=== PATIENT | male | born 1940 | race Caucasian/White ===

== ENCOUNTER 2018-02-25 16:49 | Inpatient (IN) | payer MEDICARE ==
[~2018-02-25] VITALS: Ht 170.2 cm; Wt 77.8 kg
--- NOTE | ~2018-02-25 | PR ---
[place], [place] PROGRESS NOTE [id number] UNIT #: [id number] ROOM: 404 DOCTOR: JEANNA TAMEZ MD BIRTHDATE: [birth year] DOS: 02/28/2018 SUBJECTIVE: The patient was seen by Dr. Glass yesterday for me. The patient apparently underwent an echocardiogram basically showed an ejection fraction of 55%. The patient's left atrium is normal size ____ aortic regurgitation. Mitral valve is normal. Tricuspid valve is normal. Mild tricuspid regurgitation. The patient is hemodynamically stable. PHYSICAL EXAMINATION: VITAL SIGNS: Blood pressure is 115/90. HEENT: Unremarkable. NECK: Supple, no JVD. LUNGS: Clear. HEART: Sounds are regular, paced rhythm. EXTREMITIES: About 2+ edema. NEUROLOGIC: Appears to be stable. I's and O's still shows positive at 330. IMPRESSION: The patient was seen by Dr. Glass. History of atrial fibrillation. He is in sinus rhythm with ventricular pacing, 2+ edema of the lower extremities. Echo showed an excellent ejection fraction, probably it is related to amlodipine or diltiazem because the EF is normal. The patient has a contraindication, use anticoagulation as mentioned, but the patient is in sinus rhythm and continue the present care. JEANNA TAMEZ MD CM:PNTRANS [id number] JEANNA TAMEZ MD 02/28/18 0733 interface
--- NOTE | ~2018-02-25 | CON ---
[place], [place] REPORT OF CONSULTATION [id number] UNIT #: [id number] ROOM: 404 DOCTOR: NAYLA HENRIQUEZ MD BIRTHDATE: [birth year] DOS: 02/27/2018 HISTORY OF PRESENT ILLNESS: This is a 77-year-old -[place] man with a history of paroxysmal atrial fibrillation quite a while ago. He had what he describes as long asystole where he passed out many times and had a dual chamber pacemaker implanted. This was done in [place]. He has COPD, diabetes mellitus, and hyperlipidemia. He had GI bleeding while he was on Eliquis and this was discontinued. He has had a brain tumor, he had spinal surgery, tonsillectomy and surgery of mandible. No alcohol use or illicit drugs. Does not smoke. He had become short of breath and also was coughing. He was not expectorating any sputum. He had no fever or chills. He had no palpitations or chest pain. He has chronic swelling of the legs. When he arrived in the Emergency Department, he was found to have O2 saturation of 82%. HOME MEDICATIONS: Include furosemide 40 mg daily, lisinopril 2.5 mg daily, metoprolol succinate 25 mg daily, pravastatin 20 daily, ranitidine 150 mg b.i.d. and diltiazem ER 240 mg once a day, finasteride 5 mg daily, glimepiride 8 mg daily, Januvia 100 mg daily, spironolactone 25 mg daily and Flomax 0.4 mg daily and also NovoLog FlexPen. PHYSICAL EXAMINATION: GENERAL: This is a patient who is very pleasant, alert, oriented. He is very comfortable. His temperature is normal. There is no thyromegaly or finger clubbing. He is not cyanotic or jaundiced, but has oxygen on. VITAL SIGNS: Pulse is irregular at 80 beats per minute, blood pressure 110/63. NECK: Normal JVP. AJR is negative. There is no bruit in the neck. HEART: There is no cardiomegaly. Auscultation revealed grade 1-2/6 early peaking systolic murmur over the aortic area. EXTREMITIES: There is 2+ edema of the lower extremities. RESPIRATORY: Breath sounds are mildly diminished with rhonchi and some crackles on both sides, more so on the right side. DIAGNOSTIC STUDIES: An ECG showed normal sinus rhythm and ventricular pacing. Chest x-ray demonstrated dual chamber pacemaker with normal position of the leads and right lower middle lobe infiltrates. IMPRESSION: 1. History of atrial fibrillation. He is currently in normal sinus rhythm with ventricular pacing. 2. A 2+ edema of the lower extremities, likely due to diltiazem and I do not believe this is due to cardiac decompensation. 3. Pneumonia causing hypoxia, is being treated. He has contraindication to use of anticoagulation as mentioned above. I thank you on behalf of Dr. Woodruff for this consult. [place], [place] REPORT OF CONSULTATION NAME: WOLF BENTON UNIT #: [id number] ROOM: [facility] DOCTOR: NAYLA HENRIQUEZ MD BIRTHDATE: [birth year] NAYLA HENRIQUEZ MD CM:CONSTR:REPORT OF CONSULTATION 1759 02/28/18 0347 interface JEANNA WOODRUFF MD
--- NOTE | ~2018-02-25 | EKG ---
[place], [place] ELECTROCARDIOGRAM REPORT NAME: WOLF BENTON UNIT #: [id number] ROOM: 404 DOCTOR: PHONG DRAFT REPORT BIRTHDATE: [birth year] [facility] Test Date: 2018-02-25 Test Time: 17:20:36 Pat Name: WOLF BENTON Department: Room: 404 Gender: M Assistant Front End Manager: : 1940 Requested By: SHWETA KING Order Number: [id number] Reading MD: Jody Holguin MD Measurements Intervals [place] Rate: 74 P: -20 RI: 204 QRS: 11 QRSD: 152 T: 114 QT: 418 QTc: 464 Interpretive Statements Atrial-sensed ventricular-paced rhythm No further analysis attempted due to paced rhythm Electronically Signed On 02-26-2018 11:12:06 PDT by Jody Holguin MD CM:EKGRPT:ELECTROCARDIOGRAM REPORT 1720 1112 SHWETA KING EPIPHANY DRAFT REPORT SHWETA KING
[2018-02-25 16:56] VITALS: BP 125/65
[2018-02-25] MEDS ORDERED: DILTIAZEM ER240 M1 PO (17:16)
[2018-02-25] MEDS ORDERED: DULE1ARO1 INH (17:17)
[2018-02-25] MEDS ORDERED: GOOD NEIGHBOR P20 MG PO (17:18)
[2018-02-25] MEDS ORDERED: FINASTERIDE5 M1 PO (17:18)
[2018-02-25] MEDS ORDERED: GABAPENTIN600 MG PO (17:19)
[2018-02-25] MEDS ORDERED: FUROSEMIDE40 MG PO (17:19)
[2018-02-25] MEDS ORDERED: AMARYL4 MG PO (17:19)
[2018-02-25] MEDS ORDERED: LISINOPRIL2.5 MG PO (17:20)
[2018-02-25] MEDS ORDERED: JANUVIA100 MG PO (17:20)
[2018-02-25] MEDS ORDERED: METOPROLOL SUCC25 M2 PO (17:21)
[2018-02-25] MEDS ORDERED: NOVOLOG FL100 UNIT/1 SQ (17:22)
[2018-02-25] MEDS ORDERED: PRAVACHOL20 MG PO (17:22)
[2018-02-25] MEDS ORDERED: RANITIDINE HCL150 M1 PO (17:23)
[2018-02-25] MEDS ORDERED: ALDACTONE25 M1 PO (17:24)
[2018-02-25] MEDS ORDERED: TAMSULOSIN HCL0.4 MG PO (17:25)
[2018-02-25 17:29] LABS: BASO % 0.3 % (0.0-1.0); EOS % 0.1 % (1.0-4.0); HEMOGLOBIN 11.5 g/dl (14.0-18.0); LYMPH # 0.4 10*3/uL (1.3-4.4); LYMPH % 3.6 % (27.0-41.0); MEAN CELL VOLUME 95.7 fl (80.0-94.0); MEAN CORPUSCULAR HGB 30.6 pg (27.0-31.0); MEAN CORPUSCULAR HGB CONC 31.9 g/dl (33.0-37.0); MONO # 0.6 10*3/uL (0.1-1.0); MONO % 5.5 % (3.0-9.0); NEUT # 9.8 10*3/uL (2.3-7.9); PLATELET COUNT AUTOMATED 163 10*3/uL (130-400); RED BLOOD COUNT 3.76 10*6/uL (4.50-5.90); RED CELL DISTRI WIDTH 12.9 % (0-14.5); WHITE BLOOD COUNT 10.9 10*3/uL (4.8-10.8)
[2018-02-25 17:41] LABS: ACT PARTIAL THROMBO TIME 24.5 SECONDS (20.8-31.5); INTERNATIONAL NORM RATIO 1.1 (2.0-3.5)
[2018-02-25 17:46] LABS: ALBUMIN 3.2 gm/dl (3.1-4.5); ALKALINE PHOSPHATASE 69 U/L (45-117); BUN 19 mg/dl (7-24); CHLORIDE 104 mmol/L (98-107); CREATININE 1.26 mg/dL (0.70-1.30); LIPASE 70 U/L (73-393); POTASSIUM 4.7 mmol/L (3.5-5.1); SGOT/AST 21 IU/L (3-35); SGPT/ALT 15 U/L (12-78); SODIUM 137 mmol/L (136-145); TOTAL PROTEIN 7.2 gm/dL (6.4-8.2)
[2018-02-25 17:47] LABS: TROPONIN I 0.029 ng/ml (<0.045)
[2018-02-25 17:55] LABS: ABG BASE EXCESS -2.8 mmol/L (-2.0-2.0); ABG HCO3 20.8 mmol/l (22-26); ABG O2 SATURATION 91.8 % (95-97); ARTERIAL BLOOD GAS PH 7.403 (7.35-7.45); ARTERIAL BLOOD GAS PO2 62.5 mmHg (80-90)
[2018-02-25 20:00] VITALS: BP 132/62
[2018-02-26] VITALS: BP 121/60
[2018-02-26 06:47] LABS: HEMATOCRIT 38.1 % (42.0-52.0); HEMOGLOBIN 12.1 g/dl (14.0-18.0); MEAN CELL VOLUME 96.2 fl (80.0-94.0); MEAN CORPUSCULAR HGB 30.6 pg (27.0-31.0); MEAN CORPUSCULAR HGB CONC 31.8 g/dl (33.0-37.0); MEAN PLATELET VOLUME 10.4 fl (9.6-12.3); PLATELET COUNT AUTOMATED 156 10*3/uL (130-400); RED BLOOD COUNT 3.96 10*6/uL (4.50-5.90); RED CELL DISTRI WIDTH 12.7 % (0-14.5); WHITE BLOOD COUNT 10.8 10*3/uL (4.8-10.8)
[2018-02-26 07:12] LABS: TOTAL CELLS COUNTED 100 #CELLS
[2018-02-26 07:13] LABS: PLATELET SUFFICIENCY NORMAL (NORMAL)
[2018-02-26 07:28] LABS: CHLORIDE 103 mmol/L (98-107)
[2018-02-26 07:45] LABS: BUN 20 mg/dl (7-24); CHOLESTEROL 127 mg/dL (<200); CREATININE 1.14 mg/dL (0.70-1.30); HDL CHOLESTEROL 51 mg/dl (40-60); LDL CHOLESTEROL 65 mg/dL (9-159); PHOSPHOROUS 1.7 mg/dL (2.5-4.9); THYROID STIM HORMONE (HS) 0.225 uIU/ml (0.358-4.75); TRIGLYCERIDES 56 mg/dl (<150); VLDL CHOLESTEROL 11 mg/dL (6-40)
[2018-02-26 07:54] LABS: SODIUM 137 mmol/L (136-145)
[2018-02-26 08:00] VITALS: BP 125/65
[2018-02-26 08:03] LABS: POTASSIUM 3.7 mmol/L (3.5-5.1)
[2018-02-26 09:25] LABS: VITAMIN D, 25-HYDROXY 17.5 ng/mL (30-100)
[2018-02-26 12:00] VITALS: BP 135/68
[2018-02-26 16:00] VITALS: BP 119/50
[2018-02-26 20:00] VITALS: BP 116/54
[2018-02-27] VITALS: BP 135/53
[2018-02-27 06:53] LABS: HEMATOCRIT 36.9 % (42.0-52.0); HEMOGLOBIN 11.9 g/dl (14.0-18.0); MEAN CELL VOLUME 94.6 fl (80.0-94.0); MEAN CORPUSCULAR HGB 30.5 pg (27.0-31.0); MEAN CORPUSCULAR HGB CONC 32.2 g/dl (33.0-37.0); MEAN PLATELET VOLUME 10.5 fl (9.6-12.3); PLATELET COUNT AUTOMATED 181 10*3/uL (130-400); RED CELL DISTRI WIDTH 13.2 % (0-14.5)
[2018-02-27 07:06] LABS: CHLORIDE 105 mmol/L (98-107); CREATININE 1.15 mg/dL (0.70-1.30); PHOSPHOROUS 2.8 mg/dL (2.5-4.9); POTASSIUM 4.5 mmol/L (3.5-5.1); SODIUM 141 mmol/L (136-145)
[2018-02-27 07:11] LABS: PLATELET SUFFICIENCY NORMAL (NORMAL); TOTAL CELLS COUNTED 100 #CELLS
[2018-02-27 07:17] LABS: BUN 32 mg/dl (7-24)
[2018-02-27 08:00] VITALS: BP 115/59; BP 134/56
[2018-02-27 12:00] VITALS: BP 121/47
[2018-02-27 16:00] VITALS: BP 110/63
[2018-02-27 20:00] VITALS: BP 114/68
[2018-02-28] VITALS: BP 134/62
[2018-02-28 08:00] VITALS: BP 120/52
[2018-02-28] MEDS ORDERED: LISINOPRIL5 MG PO (11:08)
[2018-02-28] MEDS ORDERED: LEVEMIR FL100 UNIT/1 SQ (11:08)
[2018-02-28] MEDS ORDERED: ZITHROMAX500 MG PO (11:27)
[2018-02-28 12:00] VITALS: BP 114/90
== END 2018-02-28 11:20 | disposition home or self-care (01) | DRG 177 ==
LOC: ED 16:49 → EDHOLD 18:08 → 4E 18:08
PROVIDERS: Internal Medicine; Nurse Practitioner Family; Student in an Organized Health Care Education/Training Program
DX: J69.0 Pneumonitis due to inhalation of food and vomit (principal); J96.01 Acute respiratory failure with hypoxia; E87.2 Acidosis; D68.59 Other primary thrombophilia; E11.65 Type 2 diabetes mellitus with hyperglycemia; I08.2 Rheumatic disorders of both aortic and tricuspid valves; I48.0 Paroxysmal atrial fibrillation; I50.9 Heart failure, unspecified; D53.9 Nutritional anemia, unspecified; R79.89 Other specified abnormal findings of blood chemistry; E66.3 Overweight; N40.0 Benign prostatic hyperplasia without lower urinary tract symptoms; E78.5 Hyperlipidemia, unspecified; J44.9 Chronic obstructive pulmonary disease, unspecified; Z79.4 Long term (current) use of insulin; Z79.899 Other long term (current) drug therapy; Z87.891 Personal history of nicotine dependence; Z82.49 Family history of ischemic heart disease and other diseases of the circulatory system; Z95.0 Presence of cardiac pacemaker; Z68.28 Body mass index [BMI] 28.0-28.9, adult

== ENCOUNTER 2018-08-23 12:03 | Emergency (ER) | payer MEDICARE ==
[~2018-08-23] VITALS: Ht 170.1 cm; Wt 79.8 kg
[~2018-08-23 12:03] MED LIST: ALDACTONE25 M1 PO; AMARYL4 MG PO; DILTIAZEM ER240 M1 PO; DULE1ARO1 INH; FINASTERIDE5 M1 PO; FUROSEMIDE40 MG PO; GABAPENTIN600 MG PO; GOOD NEIGHBOR P20 MG PO; JANUVIA100 MG PO; LEVEMIR FL100 UNIT/1 SQ; LISINOPRIL2.5 MG PO; LISINOPRIL5 MG PO; METOPROLOL SUCC25 M2 PO; NOVOLOG FL100 UNIT/1 SQ; PRAVACHOL20 MG PO; RANITIDINE HCL150 M1 PO; TAMSULOSIN HCL0.4 MG PO; ZITHROMAX500 MG PO
[2018-10-13] MEDS ORDERED: GABAPENTIN800 MG PO (18:33)
[2018-10-13] MEDS ORDERED: MELOXICAM15 MG PO (18:35)
[2018-10-13] MEDS ORDERED: HYDROCODONE-AC1 EACH PO (21:52)
[2018-10-15] MEDS ORDERED: LIPITOR10 MG PO (10:44)
[2018-10-15] MEDS ORDERED: MUCINEX ER600 MG PO (10:44)
[2018-10-15] MEDS ORDERED: PREDNISONE10 MG PO (10:44)
== END 2018-08-23 14:24 | disposition home or self-care (01) ==
LOC: ED 12:03
DX: S93.402A Sprain of unspecified ligament of left ankle, initial encounter (principal); Z87.891 Personal history of nicotine dependence; Z79.899 Other long term (current) drug therapy; X50.1XXA Overexertion from prolonged static or awkward postures, initial encounter; Y93.89 Activity, other specified; Y92.89 Other specified places as the place of occurrence of the external cause; Y99.8 Other external cause status

== ENCOUNTER 2018-12-16 19:44 | Emergency (ER) | payer MEDICARE ==
[~2018-12-16] VITALS: Ht 170.1 cm; Wt 86.2 kg
--- NOTE | ~2018-12-16 | EKG ---
[place], [place] ELECTROCARDIOGRAM REPORT NAME: WOLF BENTON UNIT #: [id number] ROOM: DOCTOR: EPIPHANY DRAFT REPORT BIRTHDATE: [birth year] [facility] Test Date: 2018-12-16 Test Time: 20:40:59 Pat Name: WOLF BENTON Department: ER Room: Gender: Instrument Designer: : 1940 Requested By: BYRON RICO PA-C Order Number: [id number] Reading MD: Jody Holguin MD Measurements Intervals [place] Rate: 63 P: 45 NE: 220 QRS: 52 QRSD: 147 T: 107 QT: 442 QTc: 453 Interpretive Statements Ventricular-paced complexes No further analysis attempted due to paced rhythm Compared to ECG 10/13/2018 23:28:24 No significant changes Electronically Signed On 12-22-2018 9:26:07 PDT by Jody Holguin MD CM:EKGRPT:ELECTROCARDIOGRAM REPORT 38 5 BYRON RICO PA-C EPIPHANY DRAFT REPORT BYRON RICO PA-C
[~2018-12-16 19:44] MED LIST changes: +GABAPENTIN800 MG PO; +HYDROCODONE-AC1 EACH PO; +LIPITOR10 MG PO; +MELOXICAM15 MG PO; +MUCINEX ER600 MG PO; -NOVOLOG FL100 UNIT/1 SQ; +NOVOLOG FL100 UNIT/2 SC; +PREDNISONE10 MG PO
[2018-12-16 20:47] LABS: BASO % 0.6 % (0.0-1.0); EOS # 0.3 10*3/uL (0.0-0.4); EOS % 4.4 % (1.0-4.0); HEMATOCRIT 33.4 % (42.0-52.0); HEMOGLOBIN 10.6 g/dl (14.0-18.0); LYMPH # 1.2 10*3/uL (1.3-4.4); LYMPH % 18.5 % (27.0-41.0); MEAN CELL VOLUME 99.7 fl (80.0-94.0); MEAN CORPUSCULAR HGB 31.6 pg (27.0-31.0); MEAN CORPUSCULAR HGB CONC 31.7 g/dl (33.0-37.0); MEAN PLATELET VOLUME 9.3 fl (9.6-12.3); MONO # 0.7 10*3/uL (0.1-1.0); MONO % 10.8 % (3.0-9.0); NEUT # 4.2 10*3/uL (2.3-7.9); NEUT % 63.1 % (47.0-73.0); PLATELET COUNT AUTOMATED 221 10*3/uL (130-400); RED BLOOD COUNT 3.35 10*6/uL (4.50-5.90); WHITE BLOOD COUNT 6.7 10*3/uL (4.8-10.8)
[2018-12-16 20:57] LABS: ACT PARTIAL THROMBO TIME 24.7 SECONDS (20.0-32.1)
[2018-12-16 21:02] LABS: ALKALINE PHOSPHATASE 64 U/L (45-117); BUN 25 mg/dl (7-24); CHLORIDE 108 mmol/L (98-107); CREATININE 1.29 mg/dL (0.70-1.30); LIPASE 93 U/L (73-393); POTASSIUM 4.7 mmol/L (3.5-5.1); SGOT/AST 22 IU/L (3-35); SGPT/ALT 23 U/L (12-78); SODIUM 143 mmol/L (136-145); TOTAL PROTEIN 7.4 gm/dL (6.4-8.2)
[2018-12-16 21:04] LABS: TROPONIN I < 0.015 ng/ml (<0.045)
[2018-12-16 21:46] LABS: BILIRUBIN NEGATIVE (NEGATIVE); BLOOD NEGATIVE (NEGATIVE); CLARITY SL CLOUDY (CLEAR); COLOR YELLOW (YELLOW); GLUCOSE NEGATIVE (NEGATIVE); KETONE NEGATIVE (NEGATIVE); LEUKO ESTERASE NEGATIVE (NEGATIVE); NITRITE NEGATIVE (NEGATIVE); PH 5.5 (5.0-9.0); SPECIFIC GRAVITY 1.025 (1.005-1.030)
[2018-12-16 21:52] LABS: BACTERIA 1+; MUCOUS TRACE; RBC 0-2 rbc/hpf (0-2)
[2019-03-06] MEDS ORDERED: LANTUS SOL100 UNIT/1 SQ (18:08)
[2019-03-06] MEDS ORDERED: ALOGLIPTIN25 MG PO (18:08)
[2019-03-06] MEDS ORDERED: BETHANECHOL CHL10 MG PO (18:10)
[2019-03-06] MEDS ORDERED: GABAPENTIN800 MG PO (18:10)
[2019-03-06] MEDS ORDERED: ROXICODONE5 MG PO (18:12)
[2019-03-06] MEDS ORDERED: COLACE100 MG PO (18:13)
[2019-03-06] MEDS ORDERED: SENNA8.6 MG PO (18:14)
[2019-03-06] MEDS ORDERED: MIRALAX17 GM PO (18:15)
[2019-03-09] MEDS ORDERED: CIPRO500 MG PO (12:22)
[2019-03-09] MEDS ORDERED: GABAPENTIN800 MG PO (12:22)
[2019-03-09] MEDS ORDERED: ROXICODONE5 MG PO (12:22)
[2019-03-09] MEDS ORDERED: VITAMIN D32000 UNI1 PO (12:22)
== END 2018-12-16 22:15 | disposition home or self-care (01) ==
LOC: ED 19:44
PROVIDERS: Physician Assistant
DX: R53.1 Weakness (principal); R26.9 Unspecified abnormalities of gait and mobility; M79.644 Pain in right finger(s); M79.645 Pain in left finger(s); Z87.891 Personal history of nicotine dependence; Z79.899 Other long term (current) drug therapy; Z79.84 Long term (current) use of oral hypoglycemic drugs; W18.2XXA Fall in (into) shower or empty bathtub, initial encounter; Y93.89 Activity, other specified; Y92.89 Other specified places as the place of occurrence of the external cause; Y99.8 Other external cause status

== ENCOUNTER 2018-12-26 10:25 | Inpatient (IN) | payer MEDICARE ==
[~2018-12-26] VITALS: Ht 170.1 cm; Wt 77.6 kg
[2018-12-26 10:25] VITALS: BP 142/79
[2018-12-26 11:22] LABS: BASO # 0.1 10*3/uL (0.0-0.1); BASO % 0.7 % (0.0-1.0); EOS # 0.1 10*3/uL (0.0-0.4); EOS % 1.6 % (1.0-4.0); HEMATOCRIT 39.5 % (42.0-52.0); HEMOGLOBIN 12.6 g/dl (14.0-18.0); LYMPH # 1.1 10*3/uL (1.3-4.4); LYMPH % 14.7 % (27.0-41.0); MEAN CELL VOLUME 97.1 fl (80.0-94.0); MEAN CORPUSCULAR HGB CONC 31.9 g/dl (33.0-37.0); MONO # 0.6 10*3/uL (0.1-1.0); MONO % 8.1 % (3.0-9.0); NEUT # 5.4 10*3/uL (2.3-7.9); NEUT % 73.4 % (47.0-73.0); PLATELET COUNT AUTOMATED 273 10*3/uL (130-400); RED BLOOD COUNT 4.07 10*6/uL (4.50-5.90); WHITE BLOOD COUNT 7.4 10*3/uL (4.8-10.8)
[2018-12-26 11:32] LABS: BUN 26 mg/dl (7-24); CHLORIDE 107 mmol/L (98-107); CREATININE 1.08 mg/dL (0.70-1.30); POTASSIUM 4.3 mmol/L (3.5-5.1); SODIUM 141 mmol/L (136-145)
--- NOTE | 2018-12-26 12:13 | NUR ---
PT POSITIONED FOR COMFORT WITH A URINAL PROVIDED AND CALL LIGHT WITHIN REACH.
--- NOTE | 2018-12-26 13:13 | NUR ---
SADA VAZQUEZ'S SON TO BE NOTIFIED WITH ADMISSION ROOM.
[2018-12-26 13:31] VITALS: BP 138/82
--- NOTE | 2018-12-26 13:54 | NUR ---
PT PROVIDED A BOX LUNCH @ THIS TIME,VSS AND WILL CONTINUE TO MONITOR,CALL LIGHT WITHIN REACH.
--- NOTE | 2018-12-26 15:14 | NUR ---
DR QUIROZ IN TO SPEAK WITH PT AND PHYSICIAN STATING PT TO RECIEVE HOME PO MEDS AND NO IV ACCESS IS REQUIRED.
--- NOTE | 2018-12-26 15:54 | NUR ---
PT WITH PAIN RELIEF WITH MEDS.
[2018-12-26 16:24] VITALS: BP 140/80
--- NOTE | 2018-12-26 16:42 | NUR ---
A 78, admitted to , under the services of FREDY Holbrook DO with a diagnosis of INABILITY TO AMBULATE. Chief complaint is GENERALIZED WEAKNESS. Patient arrived via wheel chair from ER. Monitor applied. Initial assessment completed. Vital signs taken and recorded. FREDY HOLBROOK DO notified of admission to the unit. Orders received. See assessment for past medical history, medications and allergies. Patient and/or family oriented to unit. [facility] visitation policy reviewed. Clothing/patient valuable form completed. RADHA CHISHOLM
[2018-12-26 16:51] VITALS: BP 115/86; BP 148/84
--- NOTE | 2018-12-26 19:43 | NUR ---
BLOOD SUGAR CHECK 160
[2018-12-26 20:00] VITALS: BP 145/58
--- NOTE | 2018-12-26 20:05 | NUR ---
MEDICATED WITH PRN NORCO FOR C/O PAIN. WILL MONITOR
[2018-12-27] VITALS: BP 126/73
[2018-12-27 02:15] VITALS: BP 134/78
--- NOTE | 2018-12-27 02:24 | NUR ---
PT STATES EARLIER MEDICATION EFFECTIVE. NOW RATING PAIN 4/10. PT REQUESTING SOMETHING TO HELP HIM SLEEP. PO RESTORIL ADMINISTERED PER ORDER. WILL MONITOR. CALL LIGHT IN REACH. BED ALARM INTACT.
--- NOTE | 2018-12-27 03:11 | NUR ---
EARLIER MEDICATION APPEARS EFFECTIVE. PT ASLEEP IN BED. RESPIRATIONS EASY. NO SS OF DISTRESS NOTED. WILL MONITOR. CALL LIGHT LEFT IN REACH.
[2018-12-27 06:50] LABS: BUN 27 mg/dl (7-24); CHLORIDE 108 mmol/L (98-107); CREATININE 1.03 mg/dL (0.70-1.30); POTASSIUM 4.3 mmol/L (3.5-5.1); SODIUM 140 mmol/L (136-145)
[2018-12-27 06:53] LABS: BASO # 0.1 10*3/uL (0.0-0.1); BASO % 0.6 % (0.0-1.0); EOS # 0.3 10*3/uL (0.0-0.4); EOS % 3.6 % (1.0-4.0); HEMATOCRIT 40.8 % (42.0-52.0); HEMOGLOBIN 12.7 g/dl (14.0-18.0); LYMPH # 2.1 10*3/uL (1.3-4.4); LYMPH % 24.4 % (27.0-41.0); MEAN CELL VOLUME 96.9 fl (80.0-94.0); MEAN CORPUSCULAR HGB 30.2 pg (27.0-31.0); MEAN CORPUSCULAR HGB CONC 31.1 g/dl (33.0-37.0); MEAN PLATELET VOLUME 9.3 fl (9.6-12.3); MONO # 0.9 10*3/uL (0.1-1.0); MONO % 10.2 % (3.0-9.0); NEUT # 5.1 10*3/uL (2.3-7.9); NEUT % 59.9 % (47.0-73.0); PLATELET COUNT AUTOMATED 245 10*3/uL (130-400); RED BLOOD COUNT 4.21 10*6/uL (4.50-5.90); RED CELL DISTRI WIDTH 13.1 % (0-14.5); WHITE BLOOD COUNT 8.5 10*3/uL (4.8-10.8)
[2018-12-27 08:00] VITALS: BP 146/74
--- NOTE | 2018-12-27 09:00 | NUR ---
UP TO BSC WITH 2 MAX ASSIT FOR FORMED BM
--- NOTE | 2018-12-27 09:00 | NUR ---
Jig Inspector in to talk to patient. Patient states lives at home with friend. There are few steps in the home. Physician: alejandro carrillo [facility] Home health services: none Patient's level of ADLs: MODERATE ASSIST Patient has working utilities: all working DME: cane Follow-up physician's appointment after d/c: will be made by hospitalist nurse director upon discharge Does patient want to access PORTAL?: no Discharge plan discussed with patient, son present, patient is living at home, patient is having difficulty getting around at this time, discussed with them a short term half-way for rehab prior to going back home, patient and son were inagreement, patient would like to go to [facility], asked if he had a second choice if [facility] didn't have an available bed, patient did not have a second choice at this time, project planner will made referral to [facility] , when accepted patient will need a three night stay to qualify for SNF, case management will follow. DEISI GUILLEN
--- NOTE | 2018-12-27 09:33 | NUR ---
NORCO GIVEN FOR C/O RT SHOULDER PAIN 04/10
--- NOTE | 2018-12-27 11:00 | NUR ---
resting better, less discomfort. Rate 10/08
[2018-12-27 12:00] VITALS: BP 157/74
--- NOTE | 2018-12-27 15:00 | NUR ---
PHYSICAL THERAPY Progress note: Pt was seen for evaluation while on 4th floor with moderate complexity determined. Recommend SNF at discharge. Refer to evaluation for complete details. Thank you for this referral. Kavitha Welch, PT
[2018-12-27 16:00] VITALS: BP 153/82
--- NOTE | 2018-12-27 17:14 | NUR ---
NORCO GIVEN FOR C/O PAIN IN RT SHOULDER - MEGHANA TORRE CALLED FOR UPDATED MED REC NURSE JUST REALIZED NOT REVIEWED
[2018-12-27] MEDS ORDERED: PRAVACHOL20 MG PO (18:56)
--- NOTE | 2018-12-27 19:04 | NUR ---
PT MED LIST RECEIVED AND UPDATED FROM [facility] THEN INSULIN IS FILLE AT [facility] PER PT. REVIEWED WITH PATIENT
--- NOTE | 2018-12-27 19:10 | NUR ---
PATIENT RESTING IN BED WITH NO NEEDS MADE. DENIES PAIN AT THIS TIME. BED IN LOWEST POSITION, CALL LIGHT IN REACH
[2018-12-27 20:00] VITALS: BP 162/85
--- NOTE | 2018-12-27 20:06 | NUR ---
DR MCCOLLUM AWARE OF PATIENT C/O DIARRHEA
--- NOTE | 2018-12-27 20:20 | NUR ---
MEDICATED WITH PRN IMODIUM FOR C/O DIARRHEA
--- NOTE | 2018-12-27 22:54 | NUR ---
MEDICATED WITH NORCO FOR C/O RIGHT ARM PAIN. WILL MONITOR
[2018-12-28] VITALS: BP 147/88
--- NOTE | 2018-12-28 00:35 | NUR ---
PATIENT RESTING IN BED WITH NO S/S OF DISTRESS, BED IN LOWEST POSITION,CALL LIGHT IN REACH
--- NOTE | 2018-12-28 00:42 | NUR ---
24 HR chart check completed.
--- NOTE | 2018-12-28 05:32 | NUR ---
PATIENT MEDICATED WITH PRN NORCO FOR C/O SHOULDER PAIN. WILL MONITOR
--- NOTE | 2018-12-28 07:18 | NUR ---
PHYSICAL THERAPY Nursing screen received. PT orders also received. Thank you. Sumaya Hazel,PT
[2018-12-28 08:00] VITALS: BP 147/77
--- NOTE | 2018-12-28 08:15 | NUR ---
PHYSICAL THERAPY Patient seen this am 1:1 for therapy visit and was supine in bed upon therapist arrival. Patient reports 8/10 R shoulder pain along with generalized weakness. Patient transfers supine to sit EOB with MOD A, tolerating static EOB sit x 4 minutes without c/o, SBA. Patient educated on improved seated posture by pulling shoulders back and head up prior to completing several sit to stand transfers, UX LEAD/MIN, demonstrating slow rise to upright position. Patient demonstrates "slouched" standing posture and needed v/c to stand tall. Patient completed SPT to BSC with UX LEAD/MIN A, demonstrating increased difficulty with B foot advance. Patient returned to supine in bed and able to scoot to L side for bed positioning prior to lying down. Patient remained in bed with call light, tray table, telephone and bed alarm for safety as breakfast arrived. Will continue per POC as tolerated, total treatment time 14 minutes. Brent Guerrero, FOOD PHOTOGRAPHER
--- NOTE | 2018-12-28 08:37 | NUR ---
Occupational Therapy evaluation completed on the 4th floor with full eval to follow. Precautions: fall risk, alarms, weakness, RIGHT shoulder pain. Moderate complexity level. Recommend SNF. Work on dynamic sitting balance, dressing, AE for grooming and feeding. Thank you for this referral, Yessica Robles OTR/L
--- NOTE | 2018-12-28 08:45 | NUR ---
Patient resting quietly with no c/o discomfort. Respirations easy and regular. Vital signs stable. No overt distress. PT STATES PAIN MEDICATION KEEPS HIS PAIN TOLERABLE. WILL CONTINUE TO MONITOR VERA ALLISON
--- NOTE | 2018-12-28 09:00 | NUR ---
case management visits with patient, patient will be going to [facility] for short term jail when medically stable, case managment/liaison planner following
--- NOTE | 2018-12-28 09:51 | NUR ---
PT COMPLAINT OF RIGHT SHOULDER PAIN REQUESTED MEDICATION FOR PAIN AT THIS TIME.
--- NOTE | 2018-12-28 10:10 | NUR ---
PT PLEASANT COOPERATIVE MEDICATION COMPLIANT, REQUIRES ASSISTANCE WITH SET UP FOR DRINKS AND MEALS, ALERT AND OREINTED TO ALL SPHERES. NORCO GIVEN AT THIS TIME FOR PAIN TO RIGHT SHOULDER. DRINKING FLUIDS WITH NO S/S OF DISTRESS.
--- NOTE | 2018-12-28 11:42 | NUR ---
PT STATED PAIN HAS DECREASED AND THAT NORCO EFFECTIVE AT THIS TIME.
[2018-12-28 12:00] VITALS: BP 112/67
--- NOTE | 2018-12-28 13:04 | NUR ---
Patient has been accepted to [facility], requires a 3 night stay. Patient can go on Tuesday12/29/18 if medically stable for discharge.
--- NOTE | 2018-12-28 14:54 | NUR ---
PT COMPLAINT OF PAIN TO HIS SHOULDER REQUESTED NORCO AT THIS TIME. PT PLEASANT, ATTEMPTING TO SHIFT LEGS FREQUENTLY IN BED, STATED HE WAS SUPRISED HOW WEAK HE IS. PT IN GOOD SPIRITS AT THIS TIME.
[2018-12-28 16:00] VITALS: BP 117/60
--- NOTE | 2018-12-28 19:14 | NUR ---
MEDICATED WITH PRN NORCO FOR C/O SHOULDER PAIN RATED 8/10 ON A 0/10 PAIN SCALE. WILL MONITOR
[2018-12-28 20:00] VITALS: BP 101/61
--- NOTE | 2018-12-28 23:21 | NUR ---
MEDICATED WITH PRN NORCO FOR C/O SHOULDER PAIN. WILL MONITOR
[2018-12-29] VITALS: BP 112/60
--- NOTE | 2018-12-29 01:28 | NUR ---
PATIENT RESTING IN BED WITH NO NEEDS MADE. BED IN LOWEST POSITION, CALL LIGHT IN REACH
--- NOTE | 2018-12-29 03:31 | NUR ---
MEDICATED WITH PRN NORCO FOR C/O PAIN IN RIGHT SHOULDER RATED 9/10 ON A 0/10 PAIN SCALE. WILL MONITOR
--- NOTE | 2018-12-29 07:49 | NUR ---
PATIENT RECEIVED NORCO FOR RIGHT SHOULDER PAIN RATED 9/10.
[2018-12-29 08:00] VITALS: BP 138/78
[2018-12-29] MEDS ORDERED: GABAPENTIN800 MG PO (09:16)
[2018-12-29] MEDS ORDERED: HYDROCODONE-AC1 EACH PO (09:16)
--- NOTE | 2018-12-29 11:16 | NUR ---
Patient is discharged to [facility], nurse stating she was able to reach patients son who will transport within the next hour or so. Emailed DC informatin and notified nancy at [facility]>
[2018-12-29 11:31] VITALS: BP 137/59
--- NOTE | 2018-12-29 11:43 | NUR ---
[facility] PHONE DOWN, CANNOT CALL REPORT AT THIS TIME.
--- NOTE | 2018-12-29 11:44 | NUR ---
PATIENT'S SON CONTACTED TO TRANSPORT PATIENT TO [facility] TODAY.
--- NOTE | 2018-12-29 11:55 | NUR ---
PATIENT RECEIVED NORCO FOR PAIN IN RIGHT SHOULDER RATED 8/10.
--- NOTE | 2018-12-29 11:57 | NUR ---
Discharge instructions reviewed with patient/family. Patient receptive and verbalizes understanding. Follow-up care arranged. Written instructions given to patient/family. PATIENT TAKEN FROM FLOOR VIA WC BY THIS NURSE. LEFT IN THE CARE OF HIS SON, WHO WILL TRANSPORT HIM TO [facility]. NO S/S OF DISTRESS. MORENA BROWN
--- NOTE | 2018-12-29 13:55 | NUR ---
PHYSICAL THERAPY CO-SIGN I approve of the Phyical Therapy notes written above. RAF CALERO PT
[2019-03-06] MEDS ORDERED: LANTUS SOL100 UNIT/1 SQ (18:08)
[2019-03-06] MEDS ORDERED: ALOGLIPTIN25 MG PO (18:08)
[2019-03-06] MEDS ORDERED: BETHANECHOL CHL10 MG PO (18:10)
[2019-03-06] MEDS ORDERED: GABAPENTIN800 MG PO (18:10)
[2019-03-06] MEDS ORDERED: ROXICODONE5 MG PO (18:12)
[2019-03-06] MEDS ORDERED: COLACE100 MG PO (18:13)
[2019-03-06] MEDS ORDERED: SENNA8.6 MG PO (18:14)
[2019-03-06] MEDS ORDERED: MIRALAX17 GM PO (18:15)
[2019-03-09] MEDS ORDERED: CIPRO500 MG PO (12:22)
[2019-03-09] MEDS ORDERED: ROXICODONE5 MG PO (12:22)
[2019-03-09] MEDS ORDERED: VITAMIN D32000 UNI1 PO (12:22)
[2019-03-09] MEDS ORDERED: GABAPENTIN800 MG PO (12:22)
== END 2018-12-29 11:57 | disposition other institution (70) | DRG 552 ==
LOC: ED 10:25 → 4E 14:31 → EDHOLD 14:31 → 4E 15:59
PROVIDERS: Emergency Medicine; ADMIT Internal Medicine
DX: M48.00 Spinal stenosis, site unspecified (principal); E44.0 Moderate protein-calorie malnutrition; R53.1 Weakness; R26.2 Difficulty in walking, not elsewhere classified; J44.9 Chronic obstructive pulmonary disease, unspecified; E78.5 Hyperlipidemia, unspecified; M19.90 Unspecified osteoarthritis, unspecified site; I48.2 Chronic atrial fibrillation; E11.40 Type 2 diabetes mellitus with diabetic neuropathy, unspecified; E11.65 Type 2 diabetes mellitus with hyperglycemia; G62.9 Polyneuropathy, unspecified; I50.9 Heart failure, unspecified; N40.0 Benign prostatic hyperplasia without lower urinary tract symptoms; Z86.03 Personal history of neoplasm of uncertain behavior; Z95.0 Presence of cardiac pacemaker; Z87.891 Personal history of nicotine dependence; Z82.49 Family history of ischemic heart disease and other diseases of the circulatory system; Z79.899 Other long term (current) drug therapy; Z79.84 Long term (current) use of oral hypoglycemic drugs; Z68.26 Body mass index [BMI] 26.0-26.9, adult

== ENCOUNTER 2019-03-21 19:14 | Emergency (ER) | payer MEDICARE ==
[~2019-03-21] VITALS: Ht 170.1 cm; Wt 73.0 kg
--- NOTE | ~2019-03-21 | EKG ---
[place], [place] ELECTROCARDIOGRAM REPORT NAME: WOLF BENTON UNIT #: [id number] ROOM: DOCTOR: EPIPHANY DRAFT REPORT BIRTHDATE: [birth year] [facility] Test Date: 2019-03-21 Test Time: 21:11:20 Pat Name: WOLF BENTON Department: Room: Gender: Register Of Wills: : 1940 Requested By: CHA MINA PA-C Order Number: [id number] Reading MD: George Woodruff MD Measurements Intervals [place] Rate: 68 P: IN: 60 QRS: 91 QRSD: 145 T: 117 QT: 441 QTc: 470 Interpretive Statements Atrial-paced complexes Ventricular premature complex Ventricular-paced complex(es) Electronically Signed On 03-22-2019 5:09:44 PDT by George Woodruff MD CM:EKGRPT:ELECTROCARDIOGRAM REPORT 10 0509 CHA MINA PA-C EPIPHANY DRAFT REPORT CHA MINA PA-C
[~2019-03-21 19:14] MED LIST changes: +ALOGLIPTIN25 MG PO; +BETHANECHOL CHL10 MG PO; +CIPRO500 MG PO; +COLACE100 MG PO; +LANTUS SOL100 UNIT/1 SQ; +MIRALAX17 GM PO; +ROXICODONE5 MG PO; +SENNA8.6 MG PO; +VITAMIN D32000 UNI1 PO
[2019-03-21 20:05] LABS: BASO % 0.3 % (0.0-1.0); EOS # 0.2 10*3/uL (0.0-0.4); EOS % 2.6 % (1.0-4.0); HEMATOCRIT 37.6 % (42.0-52.0); HEMOGLOBIN 11.8 g/dl (14.0-18.0); LYMPH # 1.2 10*3/uL (1.3-4.4); LYMPH % 19.1 % (27.0-41.0); MEAN CORPUSCULAR HGB 29.5 pg (27.0-31.0); MEAN CORPUSCULAR HGB CONC 31.4 g/dl (33.0-37.0); MEAN PLATELET VOLUME 9.1 fl (9.6-12.3); MONO # 0.4 10*3/uL (0.1-1.0); MONO % 6.8 % (3.0-9.0); NEUT # 4.4 10*3/uL (2.3-7.9); NEUT % 70.4 % (47.0-73.0); PLATELET COUNT AUTOMATED 268 10*3/uL (130-400); WHITE BLOOD COUNT 6.2 10*3/uL (4.8-10.8)
[2019-03-21 20:22] LABS: ALBUMIN 2.8 gm/dl (3.1-4.5); ALKALINE PHOSPHATASE 71 U/L (45-117); BUN 21 mg/dl (7-24); CHLORIDE 106 mmol/L (98-107); CREATININE 0.88 mg/dL (0.70-1.30); POTASSIUM 4.1 mmol/L (3.5-5.1); SGOT/AST 18 IU/L (3-35); SGPT/ALT 21 U/L (12-78); SODIUM 138 mmol/L (136-145)
[2019-03-21 20:23] LABS: TROPONIN I < 0.015 ng/ml (<0.045)
[2019-03-21 20:31] LABS: BILIRUBIN NEGATIVE (NEGATIVE); BLOOD 1+ (NEGATIVE); CLARITY SL CLOUDY (CLEAR); COLOR YELLOW (YELLOW); GLUCOSE NEGATIVE (NEGATIVE); KETONE NEGATIVE (NEGATIVE); LEUKO ESTERASE TRACE (NEGATIVE); NITRITE POSITIVE (NEGATIVE); SPECIFIC GRAVITY 1.025 (1.005-1.030); UROBILINOGEN 0.2 E.U./dl (0.2-1.0)
[2019-03-21 20:42] LABS: BACTERIA 3+
[2019-03-21] MEDS ORDERED: SEPTDS PO ×2 (21:54→22:11)
== END 2019-03-21 22:10 | disposition other institution (70) ==
LOC: ED 19:14
PROVIDERS: Physician Assistant
DX: N39.0 Urinary tract infection, site not specified (principal); J44.9 Chronic obstructive pulmonary disease, unspecified; E11.9 Type 2 diabetes mellitus without complications; I11.0 Hypertensive heart disease with heart failure; I50.9 Heart failure, unspecified; I48.91 Unspecified atrial fibrillation; G89.29 Other chronic pain; Z87.891 Personal history of nicotine dependence; Z79.899 Other long term (current) drug therapy; Z79.2 Long term (current) use of antibiotics; Z79.4 Long term (current) use of insulin

== ENCOUNTER 2019-05-06 10:38 | Inpatient (IN) | payer MEDICARE ==
[~2019-05-06] VITALS: Ht 170.1 cm; Wt 76.8 kg
[~2019-05-06 10:38] MED LIST changes: +SEPTDS PO
[2019-05-06 10:40] VITALS: BP 167/89
[2019-05-06 11:48] LABS: BASO % 0.3 % (0.0-1.0); EOS # 0.1 10*3/uL (0.0-0.4); HEMATOCRIT 39.9 % (42.0-52.0); HEMOGLOBIN 12.7 g/dl (14.0-18.0); LYMPH % 8.6 % (27.0-41.0); MEAN CELL VOLUME 91.1 fl (80.0-94.0); MEAN CORPUSCULAR HGB CONC 31.8 g/dl (33.0-37.0); MONO # 0.7 10*3/uL (0.1-1.0); MONO % 6.5 % (3.0-9.0); NEUT # 9.4 10*3/uL (2.3-7.9); NEUT % 82.5 % (47.0-73.0); PLATELET COUNT AUTOMATED 263 10*3/uL (130-400); RED BLOOD COUNT 4.38 10*6/uL (4.50-5.90); RED CELL DISTRI WIDTH 13.7 % (0-14.5); WHITE BLOOD COUNT 11.4 10*3/uL (4.8-10.8)
[2019-05-06 11:50] LABS: URINE AMPHETAMINES < 1000 (1000ng/ml); URINE BARBITURATES < 200 (200ng/ml); URINE BENZODIAZEPINES < 200 (200ng/ml); URINE CANNABINOIDS (THC) < 50 (50ng/ml); URINE COCAINE < 300 (300ng/ml); URINE METHADONE < 300 (300ng/ml); URINE OPIATES < 300 (300ng/ml)
[2019-05-06 11:52] LABS: URINE PHENCYCLIDINE < 25 (25ng/ml)
--- NOTE | 2019-05-06 12:00 | NUR ---
PAIN IMPROVED WITH MORPHINE DOSING.
[2019-05-06 12:04] LABS: BILIRUBIN NEGATIVE (NEGATIVE); BLOOD TRACE-INTACT (NEGATIVE); CLARITY SL CLOUDY (CLEAR); COLOR YELLOW (YELLOW); GLUCOSE NEGATIVE (NEGATIVE); KETONE NEGATIVE (NEGATIVE); LEUKO ESTERASE 2+ (NEGATIVE); NITRITE POSITIVE (NEGATIVE); SPECIFIC GRAVITY 1.015 (1.005-1.030); UROBILINOGEN 0.2 E.U./dl (0.2-1.0)
[2019-05-06 12:04] LABS: ALBUMIN 3.1 gm/dl (3.1-4.5); ALKALINE PHOSPHATASE 74 U/L (45-117); BUN 20 mg/dl (7-24); CHLORIDE 102 mmol/L (98-107); CREATININE 0.77 mg/dL (0.70-1.30); POTASSIUM 4.1 mmol/L (3.5-5.1); SGOT/AST 13 IU/L (3-35); SGPT/ALT 24 U/L (12-78); SODIUM 135 mmol/L (136-145); TOTAL PROTEIN 7.3 gm/dL (6.4-8.2)
[2019-05-06 12:14] LABS: BACTERIA 2+; WBC TNTC wbc/hpf (0-5)
--- NOTE | 2019-05-06 12:15 | NUR ---
Time: 1215 A 79 year old MALE admitted to under services of VIGNESH ROSAS DO. Pt. arrived via wheel chair from ER. Chief complaint: INTRACTABLE PAIN TO BACK, RIGHT HIP, RIGHT ARM. BING FOY A
[2019-05-06 12:16] VITALS: BP 156/50
--- NOTE | 2019-05-06 12:36 | NUR ---
AURELIO TOMLIN IN TO SEE PT.
--- NOTE | 2019-05-06 12:37 | NUR ---
CURRENTLY RATING PAIN 9/10. AWAITING ADMISSION ORDERS.
--- NOTE | 2019-05-06 12:42 | NUR ---
FAMILY STATES THAT PAIN MEDICATIONS WERE STOLEN THE DAY THAT THEY WERE FILLED. AURELIO TOMLIN INFORMED THEM THEY NEED TO REPORT THE THEFT TO THE POLICE.
[2019-05-06] MEDS ORDERED: PERCOCET 10-321 EACH PO (12:55)
[2019-05-06] MEDS ORDERED: ZESTRIL5 MG PO (13:03)
--- NOTE | 2019-05-06 13:03 | NUR ---
MED REC UPDATED.
[2019-05-06] MEDS ORDERED: NORCO 10-325 T1 EACH PO (14:38)
--- NOTE | 2019-05-06 15:08 | NUR ---
PT MEDICATED WITH IV MORPHINE PER PRN ORDER FOR C/O HIP PAIN. RATES PAIN 04/10. WILL MONITOR EFFECTIVENESS.
--- NOTE | 2019-05-06 15:28 | NUR ---
CALLED FOR DUPLICATE ORDERS OF URINE CULTURE. INFORMED HIM A SPECIMEN WAS TAKEN IN ER. ORDERED TO CANCEL THE SECOND ORDER.
--- NOTE | 2019-05-06 15:30 | NUR ---
CALLED CONSTULS TO AND . AWAITING CALL BACKS FROM BOTH.
--- NOTE | 2019-05-06 15:46 | NUR ---
PER PT, MORPHINE WAS EFFECTIVE FOR EARILER COMPLAINTS OF PAIN. RATED 6/10. DENIES NEED FOR FURTHER MEDICATIONS AT THIS TIME. CALL LIGHT IN REACH. BED ALARM ON.
[2019-05-06 16:00] VITALS: BP 127/85
[2019-05-06 16:02] LABS: BILIRUBIN NEGATIVE (NEGATIVE); BLOOD TRACE-INTACT (NEGATIVE); CLARITY CLOUDY (CLEAR); COLOR YELLOW (YELLOW); GLUCOSE NEGATIVE (NEGATIVE); KETONE NEGATIVE (NEGATIVE); LEUKO ESTERASE 2+ (NEGATIVE); NITRITE POSITIVE (NEGATIVE); PH 6.5 (5.0-9.0); UROBILINOGEN 0.2 E.U./dl (0.2-1.0)
[2019-05-06 16:31] LABS: WBC TNTC wbc/hpf (0-5)
[2019-05-06 16:32] LABS: BACTERIA 2+; RBC 0-2 rbc/hpf (0-2)
--- NOTE | 2019-05-06 17:47 | NUR ---
NOTIFIED PT IS ON THE FLOOR. SAID HE WOULD PUT ADMISSION ORDERS IN.
--- NOTE | 2019-05-06 17:51 | NUR ---
KULDIPCO GIVEN FOR COMPLAINTS OF CHRONIC GENERALIZED PAIN RATED 8/10. CALL LIGHT IN REACH. WILL MONITOR. BED ALARM ON.
--- NOTE | 2019-05-06 18:39 | NUR ---
DR. IYER CALLED BACK. NO NEW ORDERS REC'D. WILL LOOK AT HIS URINALYSIS AND POSSIBLY ADD IN ORDERS.
--- NOTE | 2019-05-06 18:52 | NUR ---
PER PT, PAIN IS TOLERABLE AND RATED 7/10 AT THIS TIME. CALL LIGHT IN REACH.
[2019-05-06 20:00] VITALS: BP 127/61
--- NOTE | 2019-05-06 21:32 | NUR ---
MORPHINE GIVEN FOR PAIN RATED 9/10. PT STATES HIS PAIN IS NEVER BELOW AN 8. HE LIVES WITH CHRONIC PAIN ALL THE TIME AND IS USED TO IT. WILL CONTINUE TO MONITOR FOR EFFECTIVENESS. CALL LIGHT IN REACH.
[2019-05-07] VITALS: BP 118/64; BP 99/55
--- NOTE | 2019-05-07 00:44 | NUR ---
PATIENT RESTING WITH EYES CLOSED. RESPIRATIONS EASY AND UNLABORED. BED ALARM ON, CALL LIGHT IN REACH. WILL MONITOR.
--- NOTE | 2019-05-07 02:59 | NUR ---
PATIENT REQUESTING PAIN MEDICATION FOR BACK PAIN , RIGHT HIP AND RIGHT ARM PAIN RATED 9/10 ON 0/10 SCALE. NORCO ADMINISTERED PRESCRIBED. WILL MONITOR FOR EFFECTIVENESS.
--- NOTE | 2019-05-07 03:59 | NUR ---
PATIENT RESTING WITH EYES CLOSED AT THIS TIME.RESPIRATIONS EASY AND UNLABORED, NO DISTRESS NOTED. BED ALARM ON, CALL LIGHT WITHIN REACH. WILL MONITOR.
[2019-05-07 06:16] LABS: BASO % 0.5 % (0.0-1.0); EOS # 0.3 10*3/uL (0.0-0.4); EOS % 3.1 % (1.0-4.0); HEMATOCRIT 37.4 % (42.0-52.0); HEMOGLOBIN 11.6 g/dl (14.0-18.0); LYMPH # 1.9 10*3/uL (1.3-4.4); MEAN CELL VOLUME 91.4 fl (80.0-94.0); MEAN CORPUSCULAR HGB 28.4 pg (27.0-31.0); MEAN PLATELET VOLUME 9.1 fl (9.6-12.3); MONO # 0.7 10*3/uL (0.1-1.0); MONO % 8.4 % (3.0-9.0); NEUT # 5.1 10*3/uL (2.3-7.9); NEUT % 63.4 % (47.0-73.0); PLATELET COUNT AUTOMATED 234 10*3/uL (130-400); RED BLOOD COUNT 4.09 10*6/uL (4.50-5.90); RED CELL DISTRI WIDTH 13.9 % (0-14.5); WHITE BLOOD COUNT 8.1 10*3/uL (4.8-10.8)
[2019-05-07 06:46] LABS: ALBUMIN 2.7 gm/dl (3.1-4.5); BUN 19 mg/dl (7-24); CHLORIDE 103 mmol/L (98-107); POTASSIUM 3.8 mmol/L (3.5-5.1); SODIUM 136 mmol/L (136-145)
[2019-05-07 06:56] LABS: ALKALINE PHOSPHATASE 65 U/L (45-117); CHOLESTEROL 153 mg/dL (<200); CREATININE 0.72 mg/dL (0.70-1.30); FREE T4 1.19 ng/dl (0.76-1.46); HDL CHOLESTEROL 36 mg/dl (40-60); LDL CHOLESTEROL 77 mg/dL (9-159); PHOSPHOROUS 3.7 mg/dL (2.5-4.9); SGOT/AST 14 IU/L (3-35); SGPT/ALT 19 U/L (12-78); TOTAL PROTEIN 6.5 gm/dL (6.4-8.2); TRIGLYCERIDES 198 mg/dl (<150); VLDL CHOLESTEROL 40 mg/dL (6-40)
[2019-05-07 08:00] VITALS: BP 118/66
[2019-05-07 08:16] LABS: VITAMIN D, 25-HYDROXY 18.2 ng/mL (30-100)
--- NOTE | 2019-05-07 08:36 | NUR ---
Morphine given per patient request for c/o chronic back pain. Will monitor.
--- NOTE | 2019-05-07 08:40 | NUR ---
Nursing screen and occupational therapy evaluation. Thank you. Em Valenzueal OTR/l
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
--- NOTE | 2019-05-07 09:15 | NUR ---
[place] effective. Patient rates pain 6/10.
[2019-05-07 12:00] VITALS: BP 133/87
--- NOTE | 2019-05-07 12:58 | NUR ---
Occupational therapy orders received and OT evaluation completed in full on floor four. Patient precautions include fall risk, right UE/LE severe arthritis, retropulsive in stance, and weakness. Per OT evaluation and POC, patient would benefit from a SNF. If refused, home with home health SN, OT, PT, and continued 24/7 supervision. Patient would benefit from continued OT treatment to maximize safety and strength for independent ADLs and transfers. Thank you for the referral. Paula Moser, OTR/L
--- NOTE | 2019-05-07 12:58 | NUR ---
PHYSICAL THERAPY Physical therapy evaluation completed, 4E. Evaluation and details to follow. Moderate complexity determined after evaluation and chart review, [id number]. PT to work on transfers, strength, gait, balance, safety. Recommending SNF at discharge. If refusal, discharge to home health and continuation of 24/ assist/care at home. Thank you Ita Nam, PT, DPT.
--- NOTE | 2019-05-07 14:10 | NUR ---
[place] given per patient c/o pain in right hip rated 9/10. Will monitor.
--- NOTE | 2019-05-07 15:00 | NUR ---
Emilia effective. Patient satisfied.
--- NOTE | 2019-05-07 15:14 | NUR ---
Occupational therapy orders received and OT evaluation and POC completed in full on floor four. Patient precautions include fall risk, right UE/LE arthritis, generalized weakness, lateral scoot transfers, and retropulsive. Per evaluation and POC, OT recommends SNF. If patient refuses, home with home health SN, OT, and PT with continued 24/7 supervision. Patient would benefit from OT treatment to maximize safety and strength for independent ADLs and transfers. Thank you for the referral. Paula Moser, OTR/L
[2019-05-07 16:00] VITALS: BP 110/67
--- NOTE | 2019-05-07 18:31 | NUR ---
Morphine given per patient request for c/o pain rated 8/10. Will monitor.
[2019-05-07 20:00] VITALS: BP 118/54
--- NOTE | 2019-05-07 20:06 | NUR ---
24 HR chart check completed.
--- NOTE | 2019-05-07 20:30 | NUR ---
RESTING IN BED WITH NO ACUTE DISTRESS NOTED. RESPIRATIONS EASY. LUNGS DIMINISHED WITH CRACKLES. PULSE OX 98% RA. [place] PATENT DRAINING NOLAN WITH SEDIMENT. CALL LIGHT WITHIN REACH. NO VOICED COMPLAINTS
--- NOTE | 2019-05-07 21:00 | NUR ---
MEDICATED WITH NORCO PER PRN ORDER FOR COMPLAINTS OF PAIN RATING AN 8 TO RIGHT SIDE, RIGHT SHOULDER, AND HANDS AND FEET. CALL LIGHT WITHIN REACH. WILL MONITOR
--- NOTE | 2019-05-07 23:00 | NUR ---
MEDS APPEAR EFFECTIVE. RESTING WITH EYES CLOSED. RESPIRATIONS EASY. CALL LIGHT WITHIN REACH. BED ALARM MAINTAINED
[2019-05-08] VITALS: BP 106/56
--- NOTE | 2019-05-08 01:41 | NUR ---
MEDICATED WITH MORPHINE IV PER PRN ORDER FOR COMPLAINTS OF PAIN RATING A 10 TO RIGHT HIP. CALL LIGHT WITHIN REACH. WILL MONITOR FOR EFFECTIVENESS
--- NOTE | 2019-05-08 03:00 | NUR ---
MEDS APPEAR EFFECTIVE. SLEEPING. RESPIRATIONS EASY. CALL LIGHT WITHIN REACH. BED ALARM MAINTAINED FOR SAFETY
--- NOTE | 2019-05-08 05:30 | NUR ---
REQUESTED AND RECEIVED NORCO PER PRN ORDER FOR COMPLAINTS OF SHOULDER PAIN RATING A 9. CALL LIGHT WITHIN REACH. WILL MONITOR FOR EFFECTIVENESS
--- NOTE | 2019-05-08 06:30 | NUR ---
MEDS APPEAR EFFECTIVE, RESTING WITH EYES CLOSED. RESPIRATIONS EASY. CALL LIGHT WITHIN REACH
[2019-05-08 08:00] VITALS: BP 114/60
--- NOTE | 2019-05-08 09:00 | NUR ---
case management visits with patient, again discussed with him a short term longterm for rehab and possibly iv antibiotics prior to returning home, educated him on the benfits of 5 days of therapy in a SNF and also a nurse to administer iv antibiotics if needed. patient declined, stated he would return home, also discussed VNA and he declined, then reconsidered home health and chose [facility], case management will follow
--- NOTE | 2019-05-08 09:20 | NUR ---
PHYSICAL THERAPY Patient seen this am 1;1 for therapy visit and was finishing breakfast supine in bed upon therapist arrival. Patient voices no new c/o's and presents with both R foot drop and weak R UE. Patient transfers supine to sit EOB with MOD A, tolerating EOB sit while performing seated B LE therex, all planes x 10 reps each. Patient demonstrates decreased R LE AROM secondary to weakness and performed several sit to stand transfers, HR MANAGER/MIN A. Patient completed SPT to [facility] with HR MANAGER/MIN, demonstrating increased difficulty with R LE advance during pivot phase of transfer. Patient returned to supine in bed and remained with call light, tray table, telephone / bed alarm for safety. Will continue per POC as tolerated, total treatment time 17 minutes. Brent Guerrero, KAIAKO KURA TUARUA
--- NOTE | 2019-05-08 09:40 | NUR ---
OT NOTE Pt was seen this A.M. 1:1 for 20 minute OT session. Upon arrival pt was supine in bed. Pt identified by name and and had complaints of R shoulder pain which he did not rate on 0-10 pain scale, stated "this is an everyday thing for me." Pt transferred supine to sit EOB with Jose Luis X 2 for assist with RLE and UB. Pt completed multiple sit to stand transfers from bed level with modA RADIOISOTOPE PRODUCTION OPERATOR. Challenged pt's static standing tolerance needed for increased I in self care tasks and functional transfers, pt was able to tolerate aprox 1 minute at a time before sitting due to fatigue. Pt completed standing pivot from EOB to and from bedside commode with modA RADIOISOTOPE PRODUCTION OPERATOR. Pt then transferred back into bed sit to supine with modA. There he was left with call light in hand, tray table in place, and bed alarm activated for safety. Continue with rec D/C plan to SNF. MEME Bermeo
--- NOTE | 2019-05-08 11:00 | NUR ---
ASSUMED CARE FOR THIS PT AT THIS TIME. PT RESTING QUIETLY IN BED. REFUSING TO GET UP IN CHAIR FOR LUNCH. PT TEACHING GIVEN ON NEED TO GET OOB. ABD SOFTLY DISTENDED. PT STATES THIS IS NORMAL FOR HIM. C/O DIARRHEA X2 DAYS. WILL MONITOR. LLL RHONCHI AUSCULTATED. CALL LIGHT IN REACH.
--- NOTE | 2019-05-08 11:07 | NUR ---
PT GIVEN NORCO 10-325 MG TAB FOR C/O GENERALIZED PAIN ALL OVER BODY. PT RATES PAIN AN "8". WILL MONTOR FOR EFFECTIVENESS. PT LYING IN BED, HOB ELEVATED. ALL SAFETY MEASURES IN PLACE. CALL LIGHT IN REACH.
[2019-05-08 12:00] VITALS: BP 120/56
--- NOTE | 2019-05-08 13:41 | NUR ---
OPEN SHANK COVERER attempted to call [facility] 2 times with extended hold times each time. OPEN SHANK COVERER will reach back out to [facility] at a later time. -MAURY Elias
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
--- NOTE | 2019-05-08 14:43 | NUR ---
REPRODUCTION ARTIST attempted to reach out to [facility]. Extended hold time again. REPRODUCTION ARTIST will reach out at a later time to make referral. -MAURY Elias
[2019-05-08 16:00] VITALS: BP 135/77
[2019-05-08 20:00] VITALS: BP 116/51
[2019-05-09] VITALS: BP 121/50
--- NOTE | 2019-05-09 05:43 | NUR ---
PATIENT REQUESTING PAIN MEDICATION FOR BACK PAIN RATED 8/10 ON 0/10 SCALE. NORCO ADMINISTERED PRESCRIBED. WILL MONITOR FOR EFFECTIVENESS.
[2019-05-09 08:00] VITALS: BP 110/56
--- NOTE | 2019-05-09 08:10 | NUR ---
24 HR chart check completed.
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
--- NOTE | 2019-05-09 09:11 | NUR ---
Patient is agreeable to snf placement at [facility], patient referral faxed, has been accepted, 3 night stay complete. Ok to go if medically stable
[2019-05-09] MEDS ORDERED: NORCO 10-325 T1 EACH PO (09:21)
[2019-05-09] MEDS ORDERED: Humalog SQ (09:25)
[2019-05-09] MEDS ORDERED: VITAMIN D32000 UNI1 PO (09:25)
--- NOTE | 2019-05-09 09:39 | NUR ---
OT NOTE Pt was seen this A.M. 1:1 for 20 minute OT session. Upon arrival pt was supine in bed. Pt identified by name and and had complaints of "9/10 R shoudler pain." Pt transferred supine to sit EOB with Jose Luis and use of bed rail for UE support. While sitting EOB challenged pt's dynamic sitting balance needed for enhanced safety and increased I, pt was able to maintain F- sitting balance requiring Jose Luis to correct. Pt completed multiple sit to stand transfers from bed level with modA SOLAR SYSTEM DESIGNER. Challenged pt's static standing tolerance needed for increased I in self care tasks and functional transfers, pt was able to tolerate aprox 30-40 seconds at a time before sitting due to fatigue. Pt transferred sit to supine with Jose Luis for assist with BLE. Pt was left supine in bed with call light in hand, tray table in place, and bed alarm activated for safety. Continue with rec D/C plan to SNF. MEME Bermeo
--- NOTE | 2019-05-09 10:44 | NUR ---
patient is discharged to [facility]. [facility] ambulette will be transporting at 12 noon. Nursing/executive steward notified. DC orders faxed.
--- NOTE | 2019-05-09 11:39 | NUR ---
PHYSICAL THERAPY 1:1 Time:30 Pain on a scale of 0-10 > Prior to treatment: 04/10 Post treatment: 04/10 Progress note: Pt seen this date for Physical Therapy Services. Pt sitting in his bed this date upon arrival, had just finished breakfast. Pt reports that his right hip is painful this date. Pt transferred this date to a seated position this date on the bedside with min to mod assistance X 2. Bedside therex done this date as well as sit to stands with moderate assistance required this date to stand for safety. Pt with difficulty shifting his weight this date to the right secondary to pain. Pt able to side step this date to move himself up in the bed with moderate to maximum assistance. Pt performed therex in bed this date with cueing for technique. Pt call light placed beside him as well as the bed alarmed enabled. CHA BELLO PTA
--- NOTE | 2019-05-09 12:10 | NUR ---
PATIENT DISCHARGED TO [facility] AT THIS TIME VIA WHEELCHAIR WITH GROUP FITNESS INSTRUCTOR. DISCHARGE PACKET GIVEN TO MARKER MACHINE ATTENDANT. REPORT CALLED TO NONA AT [facility], ALL QUESTIONS ANSWERED TO HER SATISFACTION AT THIS TIME. IV REMOVED AND DRESSING APPLIED. PATIENT BEING DISCHARGED WITH [facility] PER DOCTORS ORDERS.
--- NOTE | 2019-05-09 15:06 | NUR ---
Jayla Wade-[facility] called. HEALTH CARE FACILITIES INSPECTOR explained patient was discharged to [facility]. She stated she would follow up with the patient there. -MAURY Elias
--- NOTE | 2019-05-10 16:57 | NUR ---
OCCUPATIONAL THERAPY CO-SIGN I approve of the Occupational Therapy notes written above. CODY WEISS OTR/Gena
== END 2019-05-09 12:10 | disposition other institution (70) | DRG 884 ==
LOC: ED 10:38 → 4E 11:30 → EDHOLD 11:30 → 4E 11:56
PROVIDERS: Nurse Practitioner Family; Registered Nurse; ADMIT Emergency Medicine
DX: R54 Age-related physical debility (principal); E44.0 Moderate protein-calorie malnutrition; I50.32 Chronic diastolic (congestive) heart failure; I48.21 Permanent atrial fibrillation; E87.1 Hypo-osmolality and hyponatremia; M54.9 Dorsalgia, unspecified; N40.1 Benign prostatic hyperplasia with lower urinary tract symptoms; E11.65 Type 2 diabetes mellitus with hyperglycemia; E78.2 Mixed hyperlipidemia; R33.8 Other retention of urine; J44.9 Chronic obstructive pulmonary disease, unspecified; M54.2 Cervicalgia; G89.29 Other chronic pain; D53.9 Nutritional anemia, unspecified; M19.90 Unspecified osteoarthritis, unspecified site; E11.40 Type 2 diabetes mellitus with diabetic neuropathy, unspecified; M48.00 Spinal stenosis, site unspecified; Z87.440 Personal history of urinary (tract) infections; Z87.891 Personal history of nicotine dependence; Z82.49 Family history of ischemic heart disease and other diseases of the circulatory system; Z95.0 Presence of cardiac pacemaker; Z91.81 History of falling; Z79.899 Other long term (current) drug therapy; Z79.84 Long term (current) use of oral hypoglycemic drugs; Z68.28 Body mass index [BMI] 28.0-28.9, adult

== ENCOUNTER → 2019-05-18 | Outpatient (CLI) | payer MEDICARE ==
[~2019-05-18] MED LIST changes: +Humalog SQ; +NORCO 10-325 T1 EACH PO; +PERCOCET 10-321 EACH PO; +ZESTRIL5 MG PO
== END | disposition home or self-care (01) ==
LOC: CT 13:00
DX: N28.1 Cyst of kidney, acquired (principal); N39.0 Urinary tract infection, site not specified

== ENCOUNTER 2019-08-03 19:26 | Emergency (ER) | payer MEDICARE | END 2019-08-03 22:05 | disposition E | LOC: ED 19:26 | DX: I46.9 Cardiac arrest, cause unspecified (principal); J44.9 Chronic obstructive pulmonary disease, unspecified; E11.9 Type 2 diabetes mellitus without complications; E11.43 Type 2 diabetes mellitus with diabetic autonomic (poly)neuropathy; E78.5 Hyperlipidemia, unspecified; I48.20 Chronic atrial fibrillation, unspecified; M19.90 Unspecified osteoarthritis, unspecified site; Z87.891 Personal history of nicotine dependence; Z79.899 Other long term (current) drug therapy; Z79.4 Long term (current) use of insulin ==